=== PATIENT | male | born 1955 ===

== ENCOUNTER 2017-08-22 11:07 | Emergency (ER) | END 2017-08-22 14:30 | disposition left against medical advice (07) | LOC: UCEAST 11:07 | DX: T14.8XXA Other injury of unspecified body region, initial encounter (principal); W57.XXXA Bitten or stung by nonvenomous insect and other nonvenomous arthropods, initial encounter; Y92.9 Unspecified place or not applicable; Z53.21 Procedure and treatment not carried out due to patient leaving prior to being seen by health care provider ==